=== PATIENT | female | born 1975 | race Caucasian/White ===

== ENCOUNTER 2018-03-23 19:09 | Emergency (ER) | payer SELFPAY ==
[2018-03-23] MEDS ORDERED: ONDANSETRON 4 MG/2 ML VIAL ONE ×2 (21:00→22:22)
[2018-03-23] MEDS ORDERED: KETOROLAC 30 MG/ML INJ ONE (21:00)
[2018-03-23] MEDS ORDERED: NA CHLORIDE 0.9% 1,000 ML ONE ×2 (21:00→22:23)
[2018-03-23 21:02] LABS: Absolute Lymphocytes (CBC) 2.4 K/uL (0.7-4.9); Absolute Neutrophil 13.9 K/uL (1.8-8.0); Basophils % 0.7 % (0-1.3); Eosinophils % 0.1 % (0-4.4); Hematocrit 38.1 % (36.0-45.0); Lymphocytes % 13.8 % (15.3-44.8); MPV 9.1 fL (7.6-11.3); Monocytes % 5.7 % (3.3-12.3); RBC Red Blood Cell Count 4.09 M/uL (3.86-4.86)
[2018-03-23 21:23] LABS: Urine Blood 2+ (NEG); Urine Glucose NEGATIVE (NEG); Urine Protein TRACE (NEG); Urine Specific Gravity 1.015 (1.005-1.030); Urine pH 6.5 (5.0-7.0)
[2018-03-23 21:57] LABS: Albumin 2.9 g/dL (3.4-5.0); Bilirubin Direct 0.2 mg/dL (0-0.2); Bilirubin Total 0.5 mg/dL (0.2-1.0); Protein, Total 6.8 g/dL (6.4-8.2)
[2018-03-23 21:59] LABS: Potassium 2.8 mmol/L (3.5-5.1)
[2018-03-23 22:22] LABS: Urine Bacteria >50 /HPF (<20); Urine Culture Reflex Order REFLEXED; Urine RBC <5 /HPF (NONE SEEN)
[2018-03-23] MEDS ORDERED: KCL 20 MEQ/100 mL IVPB 20 MEQ/100 ML BAG IV ONE (22:23)
[2018-03-24] MEDS ORDERED: NA CHLORIDE 0.9% 1,000 ML ONE
[2018-03-24] MEDS ORDERED: DOXYCYCLINE 100 MG CAP PO ONE (00:32)
[2018-03-24] MEDS ORDERED: CEFTRIAXONE/SWI 1gm 1 GM/10 ML SYR ONE (00:32)
[2018-03-24] MEDS ORDERED: POTASSIUM 25 MEQ EFFERV TAB ONE ×2 (00:32→02:50)
[2018-03-24] MEDS ORDERED: MORPHINE 2 MG/ML SYR ONE (00:32)
[2018-03-24 02:36] LABS: BUN Blood Urea Nitrogen 5 mg/dL (7-18); Bicarbonate 22 mmol/L (21-32); Glucose Level 100 mg/dL (74-106); Potassium 3.4 mmol/L (3.5-5.1); Sodium Level 143 mmol/L (136-145)
--- NOTE | 2018-03-24 02:43 | ER ---
Nurse's Notes [facility] Name: Yanna Louis Age: 42 yrs Sex: Female : 1975 Arrival Date: 03/23/2018 Time: 19:10 Bed 27 Private MD: Diagnosis: Female pelvic inflammatory disease, unspecified;Hypokalemia;Unspecified ovarian cysts-bilateral Presentation: 03/23 19:21 Presenting complaint: Patient states: lower abd pain X2 days with bilateral lower back ak1 pain and bilateral leg pain X1 day. Transition of care: patient was not received from another setting of care. Onset of symptoms is unknown. Risk Assessment: Do you want to hurt yourself or someone else? Patient reports no desire to harm self or others. Initial Sepsis Screen: Does the patient meet any 2 criteria? No. Patient's initial sepsis screen is negative. Does the patient have a suspected source of infection? No. Patient's initial sepsis screen is negative. Care prior to arrival: None. 19:21 Method Of Arrival: Ambulatory ak1 19:21 Acuity: JULIENNE 3 ak1 Triage Assessment: 19:23 General: Appears uncomfortable, Behavior is calm, cooperative. 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 - Social history:: Smoking status: Patient uses tobacco products, smokes two packs cigarettes per day. - Ebola Screening: : No symptoms or risks identified at this time. Screenin:49 Abuse screen: Denies threats or abuse. Nutritional screening: No deficits noted. tl3 Tuberculosis screening: No symptoms or risk factors identified. Fall Risk None identified. Assessment: 20:49 General: Appears uncomfortable, slender, well groomed, well developed, well nourished, tl3 Behavior is calm, cooperative, appropriate for age. Pain: Complains of pain in groin. Neuro: Level of Consciousness is awake, alert, obeys commands. Cardiovascular: Patient's skin is warm and dry. Respiratory: Airway is patent Respiratory effort is even, unlabored, Respiratory pattern is regular, symmetrical. GI: No signs and/or symptoms were reported involving the gastrointestinal system. : Urine is clear. EENT: No signs and/or symptoms were reported regarding the EENT system. Derm: No signs and/or symptoms reported regarding the dermatologic system. Musculoskeletal: No signs and/or symptoms reported regarding the musculoskeletal system. 23:14 Reassessment: Patient appears in no apparent distress at this time. No changes from tl3 previously documented assessment. Patient and/or family updated on plan of care and expected duration. Pain level reassessed. Patient is alert, oriented x 3, equal unlabored respirations, skin warm/dry/pink. no needs at this time. 23:44 Reassessment: Patient appears in no apparent distress at this time. No changes from tl3 previously documented assessment. Patient and/or family updated on plan of care and expected duration. Pain level reassessed. Patient is alert, oriented x 3, equal unlabored respirations, skin warm/dry/pink. 03/24 00:42 Reassessment: Patient appears in no apparent distress at this time. No changes from tl3 previously documented assessment. Patient and/or family updated on plan of care and expected duration. Pain level reassessed. Patient is alert, oriented x 3, equal unlabored respirations, skin warm/dry/pink. 02:50 Reassessment: Patient appears in no apparent distress at this time. No changes from ak1 previously documented assessment. Patient and/or family updated on plan of care and expected duration. Pain level reassessed. Patient is alert, oriented x 3, equal unlabored respirations, skin warm/dry/pink. pt resting comfortably. pt informed of discharge. Vital Signs: 03/23 19:23 BP 101 / 64; Pulse 105; Resp 16; Temp 99.0; Pulse Ox 98% on R/A; Weight 74.84 kg (R); ak1 Height 5 ft. 3 in. (160.02 cm) (R); Pain 10/10; 23:14 BP 123 / 94; Pulse 108; Resp 18; Pulse Ox 97% on R/A; tl3 03/24 00:42 BP 129 / 102; Pulse 103; Resp 18; Pulse Ox 97% on R/A; tl3 01:56 BP 102 / 65; Pulse 72; Resp 14; Pulse Ox 98% on R/A; ak1 02:45 Pulse 72; Resp 18; Pulse Ox 100% on R/A; Pain 0/10; mg2 02:52 BP 98 / 85; Pulse 72; Resp 16; Pulse Ox 100% on R/A; ak1 03:04 Temp 98.0(O); ak1 03/23 19:23 Body Mass Index 29.23 (74.84 kg, 160.02 cm) ak1 ED Course: 03/23 19:10 Patient arrived in ED. am2 19:22 Triage completed. ak1 19:23 Arm band placed on Patient placed in waiting room, Patient notified of wait time. ak1 20:36 David Juan PA is PHCP. cp 20:36 David George MD is Attending Physician. cp 20:48 Alta Greenwood, WILLIAM is Primary Nurse. tl3 20:49 Patient has correct armband on for positive identification. Bed in low position. Call tl3 light in reach. Side rails up X 1. 20:49 No provider procedures requiring assistance completed. Inserted saline lock: 22 gauge tl3 in right forearm, using aseptic technique. Blood collected. 21:16 Transvaginal Study Probe In Process Unspecified. EDMS 21:58 Notified Nurse Practitioner and/or Physician Manager Personal of a critical lab result(s), fc potassium 2.8. 22:[address] via wheelchair. tl3 22:37 CT Abd/Pelvis - W/Contrast In Process Unspecified. EDMS 23:44 Assist provider with pelvic exam: Set up pelvic tray. Performed by David George MD tl3 Specimens sent to lab. Patient tolerated well. 03/24 01:56 BMP: recheck after administration of IV potassium Sent. ak1 02:41 Guillermo Cerda MD is Referral Physician. cp 03:05 IV discontinued, intact, bleeding controlled, No redness/swelling at site. Pressure ak1 dressing applied. Administered Medications: 03/23 21:15 Drug: Zofran 4 mg Route: IVP; Infused Over: 2 mins; Site: right forearm; tl3 03/24 00:41 Follow up: Response: No adverse reaction tl3 03/23 21:15 Drug: TORadol 30 mg Route: IVP; Infused Over: 2 mins; Site: left forearm; tl3 03/24 00:41 Follow up: Response: No adverse reaction tl3 03/23 21:27 Drug: NS 0.9% 1000 ml Route: IV; Rate: 1 bolus; Site: left forearm; Delivery: Primary tl3 tubing; 22:09 Follow up: IV Status: Completed infusion; IV Intake: 1000ml tl3 22:19 Drug: Zofran 4 mg Route: IVP; Infused Over: 2 mins; Site: right antecubital; tl3 03/24 00:41 Follow up: Response: No adverse reaction tl3 03/23 22:20 Drug: NS 0.9% 1000 ml Route: IV; Rate: 1 bolus; Site: right antecubital; Delivery: tl3 Primary tubing; 23:35 Follow up: IV Status: Completed infusion; IV Intake: 1000ml ak1 22:20 Drug: Potassium Chloride 20 mEq Route: IV; Rate: calculated rate; Site: right tl3 antecubital; Delivery: Primary tubing; 03/24 02:51 Follow up: IV Status: Completed infusion; IV Intake: 100ml ak1 00:20 Drug: Rocephin 1 grams Route: IV; Rate: bolus; Site: right forearm; Delivery: Primary tl3 tubing; 00:39 Follow up: IV Status: Completed infusion; IV Intake: 20ml tl3 00:38 Drug: Potassium Effervescent Tablet 50 mEq Route: PO; tl3 00:40 Follow up: Response: No adverse reaction tl3 00:39 Drug: Doxycycline 100 mg Route: PO; tl3 00:40 Follow up: Response: No adverse reaction tl3 00:40 Drug: morphine 2 mg Route: IVP; Infused Over: 2 mins; Site: right forearm; tl3 01:20 Follow up: Response: Pain is decreased tl3 02:44 Drug: Potassium Effervescent Tablet 50 mEq Route: PO; mg2 02:51 Follow up: Response: No adverse reaction ak1 02:45 Not Given (Physician Discretion): Potassium Effervescent Tablet 25 mEq PO once; mg2 dissolve in 4 ounces of water or juice Intake: 03/23 22:09 IV: 1000ml; Total: 1000ml. tl3 23:35 IV: 1000ml; Total: 2000ml. ak1 03/24 00:39 IV: 20ml; Total: 2020ml. tl3 02:51 IV: 100ml; Total: 2120ml. ak1 Outcome: 02:42 Discharge ordered by . cp 02:49 Condition: stable ak1 03:05 Discharged to home ambulatory, with family. ak1 03:05 Discharge instructions given to patient, Instructed on discharge instructions, follow up and referral plans. no drinking with medication, no driving heavy equipment, medication usage, Demonstrated understanding of instructions, follow-up care, medications, Prescriptions given X 3. 03:06 Patient left the ED. ak1 Signatures: Dispatcher [employer] EDMS Jaqueline Brizuela RN RN fc Lynnette Hall RN RN ak1 David Juan PA PA cp Moreno, Amanda am2 Lowrey, Tammy RN RN tl3 Jacques Hodge RN RN mg2
--- NOTE | 2018-03-24 02:43 | EDPHYS ---
Physician Documentation [facility] Name: Yanna Louis Age: 42 yrs Sex: Female : 1975 Arrival Date: 03/23/2018 Time: 19:10 Bed 27 Private MD: ED Physician David George HPI: 03/23 21:00 This 42 yrs old Female presents to ER via Ambulatory with complaints of cp Pelvic Pain. 21:00 The patient presents with pelvic pain, vaginal bleeding that is light, vaginal cp discharge. 21:00 Onset: The symptoms/episode began/occurred 2 day(s) ago. Associated signs and symptoms: cp Pertinent negatives: fever. Severity of symptoms: in the emergency department the symptoms are unchanged, despite home interventions. The patient is sexually active. Patient reports pain started after having intercourse. 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 - Social history:: Smoking status: Patient uses tobacco products, smokes two packs cigarettes per day. - Ebola Screening: : No symptoms or risks identified at this time. ROS: 21:05 Constitutional: Negative for body aches, chills, fever, poor PO intake. cp 21:05 Eyes: Negative for injury, pain, redness, and discharge. cp 21:05 ENT: Negative for drainage from ear(s), ear pain, sore throat, difficulty swallowing, difficulty handling secretions. 21:05 Cardiovascular: Negative for chest pain, edema, palpitations. 21:05 Respiratory: Negative for cough, shortness of breath, wheezing. 21:05 Abdomen/GI: Negative for vomiting, diarrhea, constipation, black/tarry stool, rectal bleeding. 21:05 : Positive for pelvic pain, vaginal bleeding, vaginal discharge, Negative for urinary symptoms. 21:05 Skin: Negative for cellulitis, rash. 21:05 Neuro: Negative for altered mental status, headache, weakness. 21:05 All other systems are negative. Exam: 21:10 Constitutional: The patient appears in no acute distress, alert, awake, cp non-diaphoretic, non-toxic, well developed, well nourished, uncomfortable. 21:10 Head/Face: Normocephalic, atraumatic. cp 21:10 Eyes: Periorbital structures: appear normal, Conjunctiva: normal, no exudate, no injection, Sclera: no appreciated abnormality, Lids and lashes: appear normal, bilaterally. 21:10 ENT: External ear(s): are unremarkable, Nose: is normal, Mouth: Lips: moist, Oral mucosa: pink and intact, moist, Posterior pharynx: is normal, airway is patent, no erythema, no exudate. 21:10 Chest/axilla: Inspection: normal, Palpation: is normal, no crepitus, no tenderness. 21:10 Cardiovascular: Rate: tachycardic, Rhythm: regular. 21:10 Respiratory: the patient does not display signs of respiratory distress, Respirations: normal, no use of accessory muscles, no retractions, no splinting, no tachypnea, labored breathing, is not present, Breath sounds: are clear throughout, no decreased breath sounds, no stridor, no wheezing. 21:10 Abdomen/GI: Inspection: distension, that is mild, Bowel sounds: active, all quadrants, Palpation: soft, in all quadrants, moderate abdominal tenderness, in the right lower quadrant and left lower quadrant, rebound tenderness, is not appreciated, involuntary guarding, is not appreciated. 21:10 Back: pain, that is moderate, of the low back area, ROM is normal, CVA tenderness, is absent. 21:10 Skin: cellulitis, is not appreciated, no rash present. 23:35 : Pelvic Exam: External exam: is normal, Speculum exam: scant bleeding, no tissue in cp cervix is seen, no tissue in vagina is seen, bimanual exam reveals cervical motion tenderness, os that is closed, uterine tenderness, right adnexal tenderness, left adnexal tenderness, no adnexal mass on right, no adnexal mass on left, discharge, bloody, a female park recreation manager was present for the exam. 03/24 00:40 ECG was reviewed by the Attending Physician. cp Vital Signs: 03/23 19:23 BP 101 / 64; Pulse 105; Resp 16; Temp 99.0; Pulse Ox 98% on R/A; Weight 74.84 kg (R); ak1 Height 5 ft. 3 in. (160.02 cm) (R); Pain 10/10; 23:14 BP 123 / 94; Pulse 108; Resp 18; Pulse Ox 97% on R/A; tl3 03/24 00:42 BP 129 / 102; Pulse 103; Resp 18; Pulse Ox 97% on R/A; tl3 01:56 BP 102 / 65; Pulse 72; Resp 14; Pulse Ox 98% on R/A; ak1 02:45 Pulse 72; Resp 18; Pulse Ox 100% on R/A; Pain 0/10; mg2 02:52 BP 98 / 85; Pulse 72; Resp 16; Pulse Ox 100% on R/A; ak1 03:04 Temp 98.0(O); ak1 03/23 19:23 Body Mass Index 29.23 (74.84 kg, 160.02 cm) ak1 MDM: 03/23 20:36 Patient medically screened. 21:00 Differential diagnosis: cervicitis, dysmenorrhea, endometriosis, ovarian cyst, pelvic cp inflammatory disease, urinary tract infection, vaginosis. 03/24 00:01 Physician consultation: Guillermo Cerda MD was called at 23:55, was contacted at 23:55, regarding admission, to the medical/surgical unit. patient's condition, recommends outpatient treatment with oral antibiotics if patient is tolerating po meds and fluids. Will see patient in clinic in 48 hours for reevaluation. 02:40 Data reviewed: vital signs, nurses notes, lab test result(s), radiologic studies, CT cp scan, ultrasound. 02:40 Counseling: I had a detailed discussion with the patient and/or guardian regarding: the historical points, exam findings, and any diagnostic results supporting the discharge/admit diagnosis, lab results, radiology results, the need for outpatient follow up, an OB/Gyne specialist, to return to the emergency department if symptoms worsen or persist or if there are any questions or concerns that arise at home. Response to treatment: the patient's symptoms have markedly improved after treatment, and as a result, I will discharge patient. ED course: VSS. Pain markedly improved. Will discharge to home for continued monitoring and patient instructed to f/u with Dr Cerda in 48 hours. 02:40 ED course: Patient tolerating po meds and fluids. 03/23 20:46 Order name: Basic Metabolic Panel; Complete Time: 23:27 03/23 20:46 Order name: CBC with Diff; Complete Time: 23:27 03/23 20:46 Order name: Hepatic Function; Complete Time: 23:27 03/23 20:46 Order name: Lipase; Complete Time: 23:27 03/23 20:46 Order name: Urine Microscopic Only; Complete Time: 23:27 03/24 02:41 Interpretation: Normal except: UWBC 20-50; UBACT >50. 03/23 20:50 Order name: Urine Dipstick--Ancillary (enter results); Complete Time: 23:27 [facility] 03/23 20:50 Order name: Urine --Ancillary (enter results); Complete Time: 23:27 [facility] 03/23 22:24 Order name: Urine Culture [facility] 03/23 23:30 Order name: GC (GONORR/CHLAMYDIA) Probe 03/23 23:30 Order name: Wet Prep; Complete Time: 01:57 03/24 01:57 Interpretation: Reviewed. 03/23 20:46 Order name: CT Abd/Pelvis - W/Contrast 03/23 21:16 Order name: Transvaginal Study Probe [facility] 03/23 23:56 Order name: BMP: recheck after administration of IV potassium; Complete Time: 02:38 03/23 20:46 Order name: IV Saline Lock; Complete Time: 20:49 03/23 20:46 Order name: Labs collected and sent; Complete Time: 20:49 03/23 20:46 Order name: Urine Dipstick-Ancillary (obtain specimen); Complete Time: 20:48 03/23 20:46 Order name: Urine Test (obtain specimen); Complete Time: 20:48 03/23 23:30 Order name: Pelvic Exam Setup; Complete Time: 02:29 03/23 23:54 Order name: PO challenge; Complete Time: 00:15 03/23 23:56 Order name: EKG; Complete Time: 23:56 03/23 23:56 Order name: EKG - Nurse/Tech; Complete Time: 00:38 cp EC:40 Rate is 68 beats/min. Rhythm is regular. MS interval is normal. QRS interval is normal. cp QT interval is normal. Interpreted by me. Reviewed by me. Administered Medications: 03/23 21:15 Drug: Zofran 4 mg Route: IVP; Infused Over: 2 mins; Site: right forearm; tl3 02 00:41 Follow up: Response: No adverse reaction tl3 03/23 21:15 Drug: TORadol 30 mg Route: IVP; Infused Over: 2 mins; Site: left forearm; tl3 03/24 00:41 Follow up: Response: No adverse reaction tl3 03/23 21:27 Drug: NS 0.9% 1000 ml Route: IV; Rate: 1 bolus; Site: left forearm; Delivery: Primary tl3 tubing; 22:09 Follow up: IV Status: Completed infusion; IV Intake: 1000ml tl3 22:19 Drug: Zofran 4 mg Route: IVP; Infused Over: 2 mins; Site: right antecubital; tl3 03/24 00:41 Follow up: Response: No adverse reaction tl3 03/23 22:20 Drug: NS 0.9% 1000 ml Route: IV; Rate: 1 bolus; Site: right antecubital; Delivery: tl3 Primary tubing; 23:35 Follow up: IV Status: Completed infusion; IV Intake: 1000ml ak1 22:20 Drug: Potassium Chloride 20 mEq Route: IV; Rate: calculated rate; Site: right tl3 antecubital; Delivery: Primary tubing; 03/24 02:51 Follow up: IV Status: Completed infusion; IV Intake: 100ml ak1 00:20 Drug: Rocephin 1 grams Route: IV; Rate: bolus; Site: right forearm; Delivery: Primary tl3 tubing; 00:39 Follow up: IV Status: Completed infusion; IV Intake: 20ml tl3 00:38 Drug: Potassium Effervescent Tablet 50 mEq Route: PO; tl3 00:40 Follow up: Response: No adverse reaction tl3 00:39 Drug: Doxycycline 100 mg Route: PO; tl3 00:40 Follow up: Response: No adverse reaction tl3 00:40 Drug: morphine 2 mg Route: IVP; Infused Over: 2 mins; Site: right forearm; tl3 01:20 Follow up: Response: Pain is decreased tl3 02:44 Drug: Potassium Effervescent Tablet 50 mEq Route: PO; mg2 02:51 Follow up: Response: No adverse reaction ak1 02:45 Not Given (Physician Discretion): Potassium Effervescent Tablet 25 mEq PO once; mg2 dissolve in 4 ounces of water or juice Disposition: 07:03 Co-signature as Attending Physician, David George MD I agree with the assessment and brenda plan of care. Disposition: 03/24/18 02:42 Discharged to Home. Impression: Female pelvic inflammatory disease, unspecified, Hypokalemia, Unspecified ovarian cysts - bilateral. - Condition is Stable. - Discharge Instructions: Potassium Content of Foods, Ovarian Cyst, Pelvic Inflammatory Disease, Pelvic Pain, Female, Hypokalemia. - Prescriptions for Tylenol- Codeine #3 300-30 mg Oral Tablet - take 2 tablets by ORAL route every 6 hours As needed; 20 tablet. Doxycycline Hyclate 100 mg Oral Tablet - take 1 tablet by ORAL route every 12 hours; 20 tablet. Metronidazole 500 mg Oral Tablet - take 1 tablet by ORAL route every 8 hours; 30 tablet. - Medication Reconciliation Form, Thank You Letter, Antibiotic Education, Prescription Opioid Use, Family Work Release form. - Follow up: Guillermo Cerda MD; When: 48 Hours; Reason: Recheck today's complaints. - Problem is new. - Symptoms have improved. - Notes: take an over the counter calcium supplement daily Signatures: Dispatcher [employer] EDDavid Sabillon MD MD cha Krenek, Amber RN RN ak1 David Juan PA PA cp Lowrey, Tammy, RN RN tl3 Jacques Hodge RN RN mg2 Corrections: (The following items were deleted from the chart) 03/23 21:16 20:48 Pelvis Complete+US.RAD.BRZ ordered. EDMS EDMS 22:31 20:47 Creatinine for Radiology+C.LAB.BRZ ordered. EDMS EDMS 22:31 20:51 UA MICROSCOPIC+U.LAB.BRZ ordered. EDMS EDMS 23:54 23:47 WESTERGREN SEDRATE+H.LAB.BRZ ordered. EDMS EDMS 23:54 23:47 C-REACTIVE PROTEIN+C.LAB.BRZ ordered. EDMS EDMS 03/24 02:48 02:42 03/24/2018 02:42 Discharged to Home. Impression: Female pelvic inflammatory cp disease, unspecified; Hypokalemia. Condition is Stable. Forms are Family Work Release, Medication Reconciliation Form, Thank You Letter, Antibiotic Education, Prescription Opioid Use. Follow up: Guillermo Cerda; When: 48 Hours; Reason: Recheck today's complaints. Problem is new. Symptoms have improved. cp 03:06 02:48 03/24/2018 02:42 Discharged to Home. Impression: Female pelvic inflammatory ak1 disease, unspecified; Hypokalemia; Unspecified ovarian cysts - bilateral. Condition is Stable. Discharge Instructions: Potassium Content of Foods, Pelvic Inflammatory Disease, Pelvic Pain, Female, Hypokalemia. Prescriptions for Tylenol-Codeine #3 300-30 mg Oral Tablet - take 2 tablets by ORAL route every 6 hours As needed; 20 tablet, Doxycycline Hyclate 100 mg Oral Tablet - take 1 tablet by ORAL route every 12 hours; 20 tablet, Metronidazole 500 mg Oral Tablet - take 1 tablet by ORAL route every 8 hours; 30 tablet. and Forms are Family Work Release, Medication Reconciliation Form, Thank You Letter, Antibiotic Education, Prescription Opioid Use. Follow up: Guillermo Cerda; When: 48 Hours; Reason: Recheck today's complaints. Problem is new. Symptoms have improved. cp
--- NOTE | 2018-03-24 07:15 | EKG ---
Test Date: 2018-03-24 Test Time: 00:30:31 Metal Buffer: MEASUREMENT RESULTS: Intervals: Rate: 68 ND: 128 QRSD: 78 QT: 414 QTc: 440 [place]: P: 21 ND: 128 QRS: 47 T: 26 INTERPRETIVE STATEMENTS: Normal sinus rhythm Normal ECG No previous ECG available for comparison Electronically Signed On 03-24-18 07:14:49 OUTSOLE BEVELER by Vishnu Serna
--- NOTE | 2018-03-24 08:19 | RAD REPORT ---
EXAM DESCRIPTION: US - Transvaginal Study Probe - 03/23/2018 9:17 pm CLINICAL HISTORY: lower abdomen pain Pelvic pain. COMPARISON: Abdomen Pelvis W Contrast dated 03/23/2018 FINDINGS: The uterus is normal in size, shape and echotexture. The uterus measures 6.2 x 4.6 x 5.3 c m. The endometrial stripe measures 4 mm, normal. The right ovary appears enlarged and contains multiple cystic lesions, largest measuring 6.7 x 4.4 cm . The right ovary measures 7.6 x 6.4 x 5.3 cm. The left ovary measures 5.9 x 3.1 x 2.5 cm. No adnex al masses. Normal Doppler blood flow was demonstrated to both ovaries. No significant pelvic ascites. IMPRESSION: Right ovarian cystic lesion is present measuring 6.7 x 4.4 cm.Advise followup pelvic son ography assessment in 6-8 weeks.
--- NOTE | 2018-03-24 17:41 | RAD REPORT ---
EXAM DESCRIPTION: CT ABDOMEN PELVIS WITH IV CONTRAST CLINICAL HISTORY: Abdominal pain. COMPARISON: None. TECHNIQUE: CT scan of the abdomen and pelvis with IV contrast. This exam was performed according to our departmental dose-optimization program, which includes automated exposure control, adjustment of the mA and/or kV according to patient size, and/or use of iterative reconstruction technique. FINDINGS: The lung bases are clear. No pleural or pericardial effusions. There is no hiatal hernia. The liver, spleen, pancreas, gallbladder, adrenal glands, and kidneys are unremarkable. No urinary st ones are seen. The uterus is grossly unremarkable. There is a 3.5 x 1.8 cm left ovarian cyst. Additio yady, there is a tubular fluid-filled structure in the right adnexa which is dilated measuring up to 5 cm, suggestive of right-sided hydrosalpinx. Correlate with same day pelvis ultrasound. No small bowel obstruction. The appendix is normal. There is no evidence of diverticulitis. No intrap eritoneal free fluid or free air is identified. The aorta is normal in caliber. No acute osseous findings are appreciated. There is no body wall maeve ia. IMPRESSION: 1. Dilated and fluid-filled tubular structure in the right adnexa suggesting right sided hydrosalpinx. Correlate with same day pelvic ultrasound. 2. A 3.5 x 1.8 cm left ovarian cyst. 3. Normal appendix. Electronically signed by Alphonse Larsen MD 03/23/2018 10:44 PM [employer]CH[employer]IC Due to temporary technical issues with the PACS/Fluency reporting system, reports are being signed by the in house radiologist as a courtesy to ensure prompt reporting. The interpreting radiologist is f ully responsible for the content of the report.
== END 2018-03-24 03:06 | disposition home or self-care (01) ==
LOC: ER 19:09
DX: N73.9 Female pelvic inflammatory disease, unspecified (principal); E87.6 Hypokalemia; N83.202 Unspecified ovarian cyst, left side; N83.201 Unspecified ovarian cyst, right side; I10 Essential (primary) hypertension; E78.5 Hyperlipidemia, unspecified; K21.9 Gastro-esophageal reflux disease without esophagitis; F17.210 Nicotine dependence, cigarettes, uncomplicated
CPT/HCPCS: 36415; 74177; 76830; 80048; 80076; 81003; 81015; 81025; 83690; 85025; 87077; 87086; 87088; 87186; 87210; 87490; 87590; 93005; 99284; J0696; J2270; J2405; J7030; Q9967